=== PATIENT | male | born 1970 | race Caucasian/White ===

== ENCOUNTER → 2021-09-17 | Outpatient (CLI) | payer BC, OTHER ==
[~2021-09-17] MED LIST: ADVIL200 M1 PO; NORVASC5 M1 PO; OMEPRAZOLE40 MG PO; TRAZODONE HCL50 MG PO
[2021-09-17 12:18] LABS: INR 0.96; PROTIME 10.5 Seconds (10.5-12.1)
[2021-09-17 13:22] LABS: URINE BILIRUBIN NEGATIVE (Negative); URINE BLOOD 1+ (Negative); URINE CLARITY CLEAR; URINE COLOR YELLOW; URINE GLUCOSE-RANDOM* NEGATIVE (Negative); URINE KETONES NEGATIVE (Negative); URINE LEUKOCYTES-REFLEX NEGATIVE (Negative); URINE NITRITE-REFLEX NEGATIVE (Negative); URINE PROTEIN (DIPSTICK) NEGATIVE (Negative); URINE SPECIFIC GRAVITY 1.025 (1.005-1.035); URINE UROBILINOGEN 0.2 E.U./dl (0.2-1.0)
[2021-09-17 13:53] LABS: BACTERIA-REFLEX 1-9 Few /HPF (None Seen); CASTS None Seen /LPF (None Seen); CRYSTALS None Seen /LPF (None Seen); SQUAMOUS 0-3 Few /LPF (0-3); URINE RBC 1-2 Rare /HPF (NONE SEEN); URINE WBC-REFLEX 0-5 Rare /HPF (0-5)
--- NOTE | 2021-09-18 12:44 | EKG ---
[place] [address] [facility] [place] [address] ELECTROCARDIOGRAM REPORT Name: ANGELICA BRYAN Room #: REG [facility] Sherie#: [id number] Admission: 09/17/21 Attend Phys: Perry Kaur MD Discharge: Date of : 74 Report #: [id number] [facility] Test Date: 2021-09-17 Test Time: 12:00:04 Pat Name: ANGELICA BRYAN Department: Room: Gender: Marketing Sales Consultant: FELIX : 1970 Requested By: Perry Kaur Order Number: [id number] MD: Fortino Joaquin Measurements Intervals [place] Rate: 67 P: 29 ME: 193 QRS: -48 QRSD: 97 T: 3 QT: 388 QTc: 410 Interpretive Statements Sinus rhythm Left anterior fascicular block No previous ECG available for comparison Electronically Signed On 09-18-2021 12:43:54 CLAMP OPERATOR by Fortino Joaquin [email or web address] <ELECTRONICALLY SIGNED> By: Fortino Joaquin MD 09/18/21 1243 1200 MD EDD Rashid
== END ==
LOC: PAC 11:14
PROVIDERS: ATTEND Orthopaedic Surgery
DX: Z01.810 Encounter for preprocedural cardiovascular examination (principal); Z01.812 Encounter for preprocedural laboratory examination; I44.4 Left anterior fascicular block; M17.0 Bilateral primary osteoarthritis of knee; Z91.048 Other nonmedicinal substance allergy status

== ENCOUNTER 2021-09-22 10:06 | Inpatient (IN) | payer BC, OTHER ==
[~2021-09-22] VITALS: Ht 185.4 cm; Wt 113.4 kg
[2021-09-22 12:19] VITALS: BP 142/90
--- NOTE | 2021-09-22 18:30 | NUR ---
PT RECEIVED FROM THE REC RM ALERT AND IN NO ACUTE DISTRESS. ANTHONY KNEES DSNGS DRY W/ TEDS, SCDS AND POLAR PAKS IN PLACE. PT ASSISTED UP W/ WALKER AT THE BEDSIDE TO VOID AND DID WELL. DENIED PAIN AT THIS TIME. ATE SOME DINNER. AT BEDSIDE.
[2021-09-22 19:41] VITALS: BP 134/87
[2021-09-23 03:57] VITALS: BP 135/81
--- NOTE | 2021-09-23 05:51 | NUR ---
ASSUMED CARE AT 1930 OF 09/22. PATIENT IS A&OX4, DENIES SHORTNESS OF BREATH. REPROTS PAIN IN BLE, PAIN MANAGED WITH ORAL PAIN MEDICATION AND COLD THERAPY. DRESSING OVER BILAT KNEES INTACT, SHERMAN HOSE AND SCD'S IN PLACE. USING URINAL IN BED INDEPENDENTLY. IV SITE IN RIGHT HAND IS INTACT, 100ML/HR OF D5 AND 1/2NS RUNNING. PROPHILACTIC IV ABX ADMINISTERED, NO S/S OF ADVERSE EFFECTS NOTED. PATIENT REPORTE NAUSEA WITH VOMITING OVERNIGHT, PRN ZOFRAN ADMINISTERED. PATIENT REPORTED RELIEF, AND HAS BEEN SLEEPING ON HOURLY ROUNDS. FALL PRECAUTIONS IN PLACE, CALL LIGHT WITHIN REACH. WILL CONTINUE TO MONITOR.
[2021-09-23 09:04] VITALS: BP 121/72
--- NOTE | 2021-09-23 09:10 | NUR ---
Cm visited with le and his at bedside. He able to make his needs know. Postop surgery bilat knees. Independent. No dme prior. Ok to sent referral to [facility] [place]. Outpt therapy arranged at [facility]. Will cont following as if needs arise.
--- NOTE | 2021-09-23 09:48 | NUR ---
Assumed care of pt at 0700. Pt a&ox4. Pain controlled with prn pain medications. Polar care in place. SHERMAN hose and SCDs in place. Pt working with physical therapy this am. Pt states the morphine pill form made him nauseaous today. Refuses morphine this am. Call light within reach. Fall precautions in place. Will continue to monitor.
[2021-09-23 15:59] VITALS: BP 139/92
[2021-09-23 19:59] VITALS: BP 134/80
--- NOTE | 2021-09-23 22:34 | NUR ---
ASSUMED PT CARE AT AROUND 1915 HRS. PT IS ALERT AND ORIENTED. ANTHONY KNEE WITH CHAO DRSG, SCDS, TEDS WELL POLAR TRICIA. PT GIVEN NORCO FOR PAIN. REFUSES MSO4 BECAUSE IT CAUSES N/V. SO FAR PATIENT DENIES ANY CONCERNS. HE IS AFEBRILE.GOOD CSM TO BOTH FEET.CALL LIGHT WITHIN REACH.
[2021-09-24 07:58] VITALS: BP 141/91
--- NOTE | 2021-09-24 11:00 | NUR ---
fww was delivered by [facility] for home with outpt therapy. He might need rehab at [facility]. he is bilat knee. 5n is eval.
--- NOTE | 2021-09-24 11:14 | NUR ---
Assumed care of pt at 0700. Pt a&ox4. Pain is worse today. Pt able to work with physical therapy but the pain became unbearable. Prn pain medications administered. Provider notified and new orders noted. Dressing c/d/i. SHERMAN hose and SCDs in place. Pt will need rehab. Call light within reach. Fall precautions in place. Will continue to monitor.
[2021-09-24 14:04] LABS: HEMATOCRIT 37.4 % (42.0-52.0); HEMOGLOBIN 12.1 gm/dL (14.0-18.0); MCH 30.3 pg (26.0-34.0); MCHC 32.4 g/dL (28.0-37.0); MCV 93.4 fL (80.0-100.0); RBC 4.01 mil/uL (4.50-6.00); RDW 13.7 % (10.5-14.5); WBC 16.9 thou/uL (4.0-11.0)
[2021-09-24 14:15] LABS: CALCIUM 8.7 mg/dL (8.5-10.1); CREATININE 1.1 mg/dL (0.7-1.3); POTASSIUM 3.8 mmol/L (3.5-5.1)
[2021-09-24 16:41] VITALS: BP 155/86
--- NOTE | 2021-09-24 17:07 | NUR ---
PATIENT IS A CANDIDATE FOR ACUTE REHAB. UNABLE TO REQUEST AUTHORIZATION THIS DATE DUE TO NEED FOR OT EVALUATION. (OT ORDERED THIS PM) BLUE CROSS CLOSED ON WEEKEND. OT WILL SEE THIS WEEKEND AND AUTHORIZATION WILL BE REQUESTED ON 09/27/21. THANK YOU FOR THIS REFERRAL.
[2021-09-24 21:18] VITALS: BP 145/82
[2021-09-24 22:34] VITALS: BP 145/82
--- NOTE | 2021-09-25 04:22 | NUR ---
UPON SHIFT REPORT, PT AT BEDSIDE, PT REPORTING 5/10 BILATERAL KNEE PAIN. PT RECEIVING PRN PO NORCO, LAST GIVEN AT 1828. UPON SHIFT ASSESSMENT, PT AOX4. PT REPORTING 7/10 PAIN IN HIPS AND BILATERAL KNEES, WORSE TO RIGHT KNEE. PT RECEIVING SCHEDULED PO MORPHINE BID, PRN PO NORCO Q4HR WITH PRN IV MORPHINE Q1HR, PRN PO DILAUDID Q2HR, PRN PO TRAMADOL Q6HR, AND PRN PO APAP Q3HR AVAILABLE. POLAR PACK IN PLACE WITH SHERMAN HOSES. PT TOLERATING PO INTAKE OF FLUIDS AND REGULAR DIET WITHOUT ISSUE. PT WITHOUT NAUSEA OR EMESIS. PT VOIDING PER URINAL AT BEDSIDE, RINA URINE NOTED. PT RESTING IN RECLINER THROUGHOUT SHIFT, FREQUENT REPOSITIONING ENCOURAGED, PT NOTED TO SHIFT INDEPENDENTLY. SENSATION INTACT, CAPILLARY REFILL LESS THAN 3SEC, PERIPHERAL PULSES PALPABLE IN ALL EXTREMITIES. PT ENCOURAGED TO NOTIFY STAFF FOR ALL NEEDS, CALL LIGHT WITHIN REACH, BED/CHAIR ALARM ON, CHAIR LOCKED, BED LOCKED IN LOWEST POSITION, FREQUENT MONITORING WILL CONTINUE.
[2021-09-25 08:39] VITALS: BP 156/41
--- NOTE | 2021-09-25 10:00 | NUR ---
Assumed care of pt at 0700. Pt a&ox4. Pain controlled with prn pain medications. Dressing c/d/i. Pt will work with physical therapy this am. Family at bedside. Call light within reach. Fall precautions in place.
[2021-09-25 16:53] VITALS: BP 137/81
[2021-09-25 20:16] VITALS: BP 129/84
--- NOTE | 2021-09-26 04:51 | NUR ---
PT SLEEPING IN RECLINER. LORTAB PROVIDING PAIN RELIEF. VOIDING PER URINAL. RESTING COMFORTABLY. NO NEEDS VOICED. CALL LIGHT WITHIN REACH. FREQUENT OBSERVATION.
[2021-09-26 07:52] VITALS: BP 152/87
--- NOTE | 2021-09-26 14:23 | NUR ---
A/O X 4. ROOM AIR. NO IV, URINAL AT BEDSIDE. CHAO DRESSINGS BILATERAL KNEES, POLAR PACK, TEDS, ZOFRAN GIVEN PER PATIENT REQUEST BEFORE MOPRHINE. NORCO GIVEN PRN. AT BEDSIDE,
[2021-09-26 16:49] VITALS: BP 158/77
[2021-09-26 19:58] VITALS: BP 143/70
--- NOTE | 2021-09-27 05:10 | NUR ---
PT SLEEPING IN RECLINER. VOIDING PER URINAL. LORTAB PROVIDING PAIN RELIEF. POSSIBLE DISCHARGE HOME 09/27. RESTING COMFORTABLY. NO NEEDS VOICED. CALL LIGHT WITHIN REACH. FREQUENT OBSERVATION.
[2021-09-27 05:33] LABS: HEMATOCRIT 31.6 % (42.0-52.0); HEMOGLOBIN 10.7 gm/dL (14.0-18.0); MCH 31.7 pg (26.0-34.0); MCHC 33.9 g/dL (28.0-37.0); MCV 93.6 fL (80.0-100.0); RBC 3.37 mil/uL (4.50-6.00); WBC 10.9 thou/uL (4.0-11.0)
[2021-09-27 07:34] VITALS: BP 169/76
--- NOTE | 2021-09-27 08:15 | O ---
[facility] [place] [address] OPERATIVE REPORT Name: ANGELICA BRYAN Room #: 442-P ADM IN M.R.#: [id number] Admission: 09/24/21 Attend Phys: Perry Kaur MD Discharge: Date of : 74 Report #: [id number] THIS REPORT FOR: cc: FAM - Family physician unknown FAM - Family physician unknown Perry Kaur MD ~ DATE OF SERVICE: 09/22/2021 PREOPERATIVE DIAGNOSIS: Bilateral knee osteoarthritis. POSTOPERATIVE DIAGNOSIS: Bilateral knee osteoarthritis. PROCEDURE: Bilateral total knee arthroplasty using Navio robotic assistance. SURGEON: Perry Kaur MD BILL BOARD POSTER: Leonarda Morales PA-C. INDICATION FOR BILL BOARD POSTER: Throughout the case, extensive retraction and manipulation of the knee was required. This was afforded to me by my project construction assistant manager. ANESTHESIA: LMA with adductor canal block. IMPLANTS: For both knees is a Ball and Nephew size 7 Journey II BCS Oxinium femur, a size 7 tibia, size 9 polyethylene and size 35 patella. TOURNIQUET TIME: 58 minutes for both knees. ESTIMATED BLOOD LOSS: 50 mL. COMPLICATIONS: None. SPECIMENS: None. CONDITION UPON LEAVING THE OR: Stable. INDICATIONS FOR PROCEDURE: The patient is a 50-year-old gentleman with severe bilateral knee osteoarthritis. He failed conservative measures for this and after discussion with him, he elected for bilateral total knee arthroplasty. DESCRIPTION OF PROCEDURE: Risks, benefits, alternatives, complications were discussed in detail with the patient including but not limited to risk of anesthesia; risk of damage to nerves, arteries, blood vessels; risk for infection, bleeding; risk for continued knee pain and need for reoperation. Informed consent was obtained from the patient. The bilateral knees were prepped and draped in normal sterile fashion. Timeout was performed properly [address] [address] OPERATIVE REPORT Name: AGNELICA BRYAN Room #: 442-P [facility] IN M.R.#: [id number] Admission: 09/24/21 Attend Phys: Perry Kaur MD Discharge: Date of : 74 Report #: [id number] identifying the patient and procedure as well as the instrumentation and implants. All in the operating room in agreement. Following dictation applied to bilateral knees. Lower extremity was exsanguinated, tourniquet was inflated. Tourniquet time was 58 minutes. Standard midline approach to the knee was made with 10 blade through the skin. Dissection was taken down sharply to the fascia and deep flaps were developed medially and laterally. Fresh 10 blade was used to make a medial parapatellar arthrotomy and the knee was inspected. There was severe medial compartment and lateral compartment osteoarthritis with moderate patellofemoral compartment osteoarthritis. ACL and PCL were removed sharply. Reference pins were placed in the femur and the tibia. The knee was digitally mapped using the [employer] robotic system. Intraoperative plan was made. We sized the size 7 femur, size 7 tibia and a 10 spacer. After acceptance of the intraoperative plan, the distal femoral cut was made with Navio bur. Distal femoral cutting block was pinned in place and chamfer cuts were made. Attention was turned to the tibia. Remainder of the menisci removed with Bovie cautery. Tibial resection guide was pinned in place using Navio for placement and tibial resection was made. Flexion and extension gaps were checked and found to have good balance in flexion and extension both medially and laterally. Tibia was sized, found to be a size 7. Size 7 tibial trial was placed, pinned and punched. A size 7 femoral trial was placed and box cut was made. This was then trialed with a size 9 polyethylene. A size 9 polyethylene demonstrated 1-2 mm of laxity medially and laterally throughout range of motion of the knee with full extension. A 9 mm of bone was resected from the posterior surface of the patella and a size 35 patellar trial button was placed. Knee was taken through range of motion, found to be stable, found to have good patellar tracking. Trial components were removed. Bone ends were thoroughly irrigated with normal saline. Final size 7 tibia, size 7 Journey II BCS Oxinium femur, and a size 35 patella were cemented in place using standard cementation techniques. While the cement cured, a periarticular injection consisting of morphine, ropivacaine, epinephrine, Toradol was placed around the knee joint capsule. Tourniquet was deflated. Hemostasis was obtained with Bovie cauterie. A 9 polyethylene was placed. A gram of vancomycin was placed deep in the joint. The fascia was closed with 0 Vicryl. Skin was closed with 2-0 Vicryl, skin staple and a CHAO dressing was applied. The patient tolerated this procedure well and went to recovery room under care of anesthesia postoperatively. <ELECTRONICALLY SIGNED> By: Perry Kaur MD 09/27/21 0815 [id number] [id number] Perry Kaur MD /maday
--- NOTE | 2021-09-27 09:00 | NUR ---
alisa visited with le and his at bedside, he is now wanting to go home with outpt therapy at [place] starting tomorrow. FWW was delivered by [facility]. If stair go ok i want to go home per le.
--- NOTE | 2021-09-27 09:16 | NUR ---
ASSUMED PT CARE THIS AM. PT IS ALERT & ORIENTED X4. PT HAS NO IV SITE. PT HAS CHAO DRESSING, POLAR PACK X2, SHERMAN HOSES BILATERAL KNEE HIGH. PT IS ON ROOM AIR. GIVEN SCHEDULED MEDICATION THIS AM. GIVEN ZOFRAN SUBLINGUAL PRIOR MORPHINE PER PT REQUEST. PT RATED PAIN 6/10 ON BILATERAL KNEE AND GIVEN PAIN MEDICATION PER PT REQUEST. PT AT THE BEDSIDE. PT ON THE CHAIR WATCHING TV AND AWAITING FOR PHYSICAL THERAPY THIS AM. PT WANTS TO GO HOME [facility] REHAB. WILL CONTINUE TO MONITOR PT. FOLLOW POC.
[2021-09-27 10:15] VITALS: BP 169/76
== END 2021-09-27 11:40 | disposition home or self-care (01) | DRG 462 ==
LOC: OR → TBA 10:06 → OR 10:58 → 4S 16:54 → OR 16:55 → 4S 09-24 10:44
PROVIDERS: Nurse Practitioner Family; ADMIT Orthopaedic Surgery; ATTEND Orthopaedic Surgery
PROC: 0SRD069 Replacement of Left Knee Joint with Oxidized Zirconium on Polyethylene Synthetic Substitute, Cemented, Open Approach (ICD-10-PCS; principal; 2021-09-22)
PROC: 8E0Y0CZ Robotic Assisted Procedure of Lower Extremity, Open Approach (ICD-10-PCS; principal; 2021-09-22)
PROC: 3E0T3BZ Introduction of Anesthetic Agent into Peripheral Nerves and Plexi, Percutaneous Approach (ICD-10-PCS; principal; 2021-09-22)
PROC: 0SRC069 Replacement of Right Knee Joint with Oxidized Zirconium on Polyethylene Synthetic Substitute, Cemented, Open Approach (ICD-10-PCS; principal; 2021-09-22)
DX: M17.0 Bilateral primary osteoarthritis of knee (principal); F41.9 Anxiety disorder, unspecified; E78.5 Hyperlipidemia, unspecified; K21.9 Gastro-esophageal reflux disease without esophagitis; I10 Essential (primary) hypertension; G62.9 Polyneuropathy, unspecified; Z20.822 Contact with and (suspected) exposure to COVID-19; Z86.19 Personal history of other infectious and parasitic diseases; Z79.899 Other long term (current) drug therapy; Z28.21 Immunization not carried out because of patient refusal
CPT/HCPCS: 10195; 50101; 50415; 50915; 50954; 51130; 51225; 51412; 53000; 53078; 53365; 56527; 56528; 57095; 57103; 57110; 57127; 57180; 59024; 62110; 62900; 64039; 70005